=== PATIENT | female | born 1980 | race Caucasian/White ===

== ENCOUNTER 2021-08-31 15:44 | Emergency (ER) | payer BC ==
[2021-08-31] MEDS ORDERED: Sodium Chloride 0.9% 10 ML Syringe FLUSH PRN (16:12)
[2021-08-31 16:22] VITALS: BP 142/92; PULSE 83
[2021-08-31 17:08] LABS: ANION GAP 12.8 mEq/L (7-13); CHLORIDE,CL 107 mmol/L (98-107); SODIUM,NA 142 mmol/L (136-145)
[2021-08-31 17:36] LABS: ESTIMATED GFR 76 mL/min (>=60)
== END 2021-08-31 18:30 | disposition home or self-care (01) ==
LOC: DL.ED 15:44
DX: R07.9 Chest pain, unspecified (principal); Z88.1 Allergy status to other antibiotic agents; Z88.2 Allergy status to sulfonamides
CPT/HCPCS: 36415; 80053; 83690; 83735; 84443; 84484; 84703; 85025; 93010; 99283; 99285